=== PATIENT | female | born 1980 ===

== ENCOUNTER 2020-08-31 08:27 | Outpatient (REF) | payer OTHER, SELFPAY ==
[2020-09-03 12:36] LABS: HPV mRNA E6/E7 rflx Not Detected (Not Detected)
== END 2020-08-31 08:28 | disposition home or self-care (01) ==
LOC: HO.LAB 08:27
PROVIDERS: PCP Internal Medicine; Visit Provider Obstetrics & Gynecology
DX: Z01.419 Encounter for gynecological examination (general) (routine) without abnormal findings (principal); Z11.51 Encounter for screening for human papillomavirus (HPV)
CPT/HCPCS: 87624; 88142

== ENCOUNTER 2021-01-07 07:53 | Outpatient (REF) | payer OTHER, SELFPAY ==
--- NOTE | ~2021-01-07 | XR_ITS ---
EXAMINATION: XR RIGHT HIP CLINICAL INFORMATION: Pain. COMPARISON: None. TECHNIQUE: 2 views of the right hip. FINDINGS: Bone alignment is normal. No fracture or dislocation is seen. The joint space is normal. Soft tissues are normal. XR/XR hip RT min 2V IMPRESSION: Unremarkable exam. EXAMINATION: XR LUMBAR SPINE CLINICAL INFORMATION: Pain. COMPARISON: None. TECHNIQUE: 3 views of the lumbar spine. FINDINGS: There is curvature of the proximal lumbar spine to the right and lower lumbar spine to the left. Bone alignment is otherwise normal. Disc spaces are normal. There is lower lumbar spine facet arthritis. IMPRESSION: Slowly mild scoliosis and lower lumbar spine facet arthritis.
--- NOTE | ~2021-01-07 | XR_ITS ---
EXAMINATION: XR RIGHT HIP CLINICAL INFORMATION: Pain. COMPARISON: None. TECHNIQUE: 2 views of the right hip. FINDINGS: Bone alignment is normal. No fracture or dislocation is seen. The joint space is normal. Soft tissues are normal. XR/XR lumbar spine 2-3V IMPRESSION: Unremarkable exam. EXAMINATION: XR LUMBAR SPINE CLINICAL INFORMATION: Pain. COMPARISON: None. TECHNIQUE: 3 views of the lumbar spine. FINDINGS: There is curvature of the proximal lumbar spine to the right and lower lumbar spine to the left. Bone alignment is otherwise normal. Disc spaces are normal. There is lower lumbar spine facet arthritis. IMPRESSION: Slowly mild scoliosis and lower lumbar spine facet arthritis.
[2021-01-07 08:53] LABS: MANUAL DIFF FLAG NO
[2021-01-07 08:58] LABS: Basophils Percent Auto 0.2 % (0-2); Eosinophils Absolute Auto 0.1 X10*3/uL (0.0-0.4); Eosinophils Percent Auto 2.5 % (0-4); Hematocrit 40.9 % (37-47); Hemoglobin 13.2 g/dl (12.0-16.0); Imm Gran Abs Auto 0.01 X10*3/uL (0.00-0.03); Imm Gran Pct Auto 0.2 % (0.0-0.4); Lymphocytes Absolute Auto 1.3 X10*3/uL (1.2-4.9); Lymphocytes Percent Auto 30.2 % (20-40); Mean Corpuscular HGB Conc 32.3 g/dl (31.0-35.0); Mean Corpuscular Hemoglobin 30.8 pg (27.0-33.0); Mean Corpuscular Volume 95.6 fL (80-98); Mean Platelet Volume 10.3 fL (9.4-12.3); Monocytes Absolute Auto 0.4 X10*3/uL (0.1-1.2); Monocytes Percent Auto 9.8 % (2-11); Neutrophils Absolute Auto 2.5 X10*3/uL (2.0-8.3); Neutrophils Percent Auto 57.1 % (45-73); Platelet Count 248 X10*3/uL (160-400); Red Blood Count 4.28 X10*6/uL (4.20-5.50); Red Cell Distribution Width 11.9 % (11.0-16.0); White Blood Count 4.4 X10*3/uL (4.8-10.8)
[2021-01-07 09:04] LABS: Appearance Urine HAZY; Color Urine YELLOW; Glucose Urine UA NEG (NEG); Leukocyte Esterase Urine NEG (NEG); Nitrite Urine NEG (NEG); Specific Gravity - Urine 1.025 (1.005-1.025); Urine Blood NEG (NEG); Urine Ketones NEG (NEG); Urine Protein NEG (NEG-TRACE)
[2021-01-07 09:19] LABS: RBC Urine 0 /HPF (0); Squamous Epithelial Cell Urine 2+ /LPF; WBC Urine 0 /HPF (0-4)
[2021-01-07 09:20] LABS: Bacteria Urine TRACE /LPF; Mucus Urine 2+ /LPF
[2021-01-07 09:21] LABS: Alanine Aminotransferase 12 U/L (0-31); Albumin Level 4.3 g/dL (3.5-5.0); Alkaline Phosphatase 60 U/L (39-117); Anion Gap 13 (12-20); Aspartate Amino Transferase 15 U/L (5-31); Bilirubin Total 0.8 mg/dL (0.0-1.0); Blood Urea Nitrogen 12 mg/dL (9-16); Calcium 8.9 mg/dL (8.4-10.2); Carbon Dioxide 25 mmol/L (22-29); Chloride 106 mmol/L (96-108); Cholesterol 204 mg/dL; Estimated Glomerular Filt Rate > 60; Glucose Random 85 mg/dL (60-115); HDL Cholesterol 58 mg/dL; LDL Cholesterol Calculated 136 mg/dl; Potassium 4.6 mmol/L (3.3-5.1); Sodium 139 mmol/L (135-145); Triglycerides 51 mg/dL
[2021-01-07 09:45] LABS: Free T4 (Free Thyroxine) 1.01 ng/dL (0.71-1.85); Vitamin D 25-OH Total 20.1 ng/mL (>30)
[2021-01-07 10:05] LABS: Vitamin B12 283 pg/mL (200-900)
== END 2021-01-07 07:54 | disposition home or self-care (01) ==
LOC: HO.XRAY 07:53
PROVIDERS: PCP Internal Medicine; Visit Provider Internal Medicine
DX: M25.551 Pain in right hip (principal); M54.9 Dorsalgia, unspecified; R42 Dizziness and giddiness; E78.00 Pure hypercholesterolemia, unspecified
CPT/HCPCS: 36415; 72100; 73502; 80053; 80061; 81001; 82306; 82607; 82746; 84439; 84443; 85025

== ENCOUNTER 2021-09-05 21:01 | Emergency (ER) | payer OTHER, SELFPAY ==
[2021-09-05 21:18] VITALS: BP 145/70; PULSE 83; RESP 18; TEMP 36.2; O2SAT 97; BMI 32.3
[2021-09-05 23:58] VITALS: BP 116/70; PULSE 86; RESP 14; O2SAT 98
--- NOTE | 2021-09-06 00:12 | ED.LOWEXIN ---
HPI - Extremity Injury (Lower) General Chief Complaint: Extremity Injury, Lower Stated Complaint: R leg pain Time Seen by Provider: 09/05/21 21:34 Source: patient Mode of arrival: ambulatory Limitations: no limitations History of Present Illness HPI Narrative: Patient playing volleyball all of a sudden heard a pop when she jumped in the back of the right calf area since then pain full to ambulate slight swelling no other injury Related Data Previous Rx's Medication Instructions Recorded cyclobenzaprine 10 mg tablet 10 mg PO BID PRN #20 tab 07/12/21 ibuprofen 600 mg tablet 600 mg PO Q6H PRN #30 tab 09/06/21 Allergies Allergy/AdvReac Type Severity Reaction Status Date / Time pseudoephedrine [Sudafed] Allergy Unknown unk Verified 12/28/20 09:08 Review of Systems Review of Systems: Yes all other systems are reviewed and are negative [facility] Past Medical History Medical History Constipation Left ovarian cyst Obesity (BMI 30-39.9) Vitamin D deficiency Social History Social History Housing: Apartment Alcohol intake: never Patient Tobacco Use Status: Never used Tobacco Advance Directives: No service: No Current occupational status: employed Physical Exam Vital Signs: Vital Signs: Last Vital Signs Temp 97.2 F 09/05/21 21:18 Pulse 86 09/05/21 23:58 Resp 14 09/05/21 23:58 BP 116/70 09/05/21 23:58 Pulse Ox 98 09/05/21 23:58 BMI result Body Mass Index 32.3 Extrem: Upper/lower leg/hip images: 1. Diffuse tenderness muscle flap no ecchymosis or tightness upper calf area able to plantar flex and dorsiflex without significant deficit MDM - Extremity Injury (Lower) MDM Narrative Medical decision making narrative: Bedside ultrasound was done on the R calf no gap was notice no fluid collection noticed David wrap was applied patient will use crutches and ibuprofen for pain Discharge Plan Discharge Clinical Impression: Strain of right calf muscle Patient Disposition: Home, Self-Care Instructions: Muscle Strain (ED) Additional Instructions: Wear the David wrap for support Use crutches for ambulation Ibuprofen for pain Report to the ER if increased swelling increased pain you should get better in next 7-10 days Prescriptions: New ibuprofen 600 mg tablet 600 mg PO Q6H PRN (Reason: pain) Qty: 30 0RF No Action cyclobenzaprine 10 mg tablet 10 mg PO BID PRN (Reason: muscle spasm) Qty: 20 0RF Interventions: LWBS Worksheet Last Done: 09/05/21 21:02 ED Discharge Assessment Last Done: 09/06/21 00:42 Discharge Date/Time: 09/06/21 00:42
[2021-09-06] MEDS: Ibuprofen 600 MG TABLET PO (00:39)
== END 2021-09-06 00:42 | disposition home or self-care (01) ==
LOC: HO.ED 09-06 00:26
PROVIDERS: Emergency Provider Internal Medicine; PCP Internal Medicine
DX: S86.911A Strain of unspecified muscle(s) and tendon(s) at lower leg level, right leg, initial encounter (principal); X58.XXXA Exposure to other specified factors, initial encounter; Y93.9 Activity, unspecified; Y92.9 Unspecified place or not applicable; Y99.9 Unspecified external cause status; Z79.899 Other long term (current) drug therapy
CPT/HCPCS: 99282; 99283

== ENCOUNTER 2022-02-01 10:32 | Outpatient (REF) | payer OTHER, SELFPAY ==
--- NOTE | ~2022-02-01 | MM_ITS ---
EXAMINATION: MM SCREENING DIGITAL BREAST TOMOSYNTHESIS, BILATERAL CLINICAL INFORMATION: Screening. Asymptomatic. The lifetime risk of breast cancer based on the Tyrer-Cuzick Model is 10.2%. COMPARISON: Mammography: None. TECHNIQUE: Digital breast tomosynthesis is performed in both the craniocaudal and mediolateral oblique views along with computer-aided detection (CAD). Synthesized 2D images are generated from the tomosynthesis. FINDINGS: The breasts are extremely dense, which lowers the sensitivity of mammography (ACR BI-RADS breast composition Category d). No suspicious right breast findings are identified. Within the inferior aspect of the left breast approximately 7 cm from the nipple there is an oval circumscribed density measuring approximately 2.8 x 2.0 cm in size. Targeted left breast ultrasound is recommended. MM/MM tomosynthesis screening BI IMPRESSION: Left breast density for further evaluation with ultrasound. ASSESSMENT: BI-RADS 0: Incomplete - Need Additional Imaging Evaluation RECOMMENDATION: Targeted left breast ultrasound.
== END 2022-02-01 10:33 | disposition home or self-care (01) ==
LOC: HO.MAMMO 10:32
PROVIDERS: PCP Internal Medicine; Visit Provider Internal Medicine
DX: Z12.31 Encounter for screening mammogram for malignant neoplasm of breast (principal)
CPT/HCPCS: 77063; 77067

== ENCOUNTER 2022-02-06 12:44 | Outpatient (REF) | payer OTHER, SELFPAY ==
--- NOTE | ~2022-02-06 | US_ITS ---
EXAMINATION: US DIAGNOSTIC ULTRASOUND BREAST, LEFT CLINICAL INFORMATION: Density on mammography inferior left breast. COMPARISON: 02/01/2022 TECHNIQUE: Ultrasound of the breast is performed with real-time mattson scale imaging and color Doppler. FINDINGS: At the 5 o'clock position approximately 7 cm from the nipple there is a heterogeneous hypoechoic well-circumscribed slightly lobular lesion measuring 2.5 x 2.1 x 0.9 cm in size. The lesion is wider than it is tall. There is some internal vascularity present. There is some mild distal sound enhancement. This may be related to fibroadenoma but is indeterminate. Ultrasound-guided core biopsy is recommended. Results are discussed with the patient at time of visit. US/US breast LT limited IMPRESSION: Solid lesion left breast 5 o'clock position for which ultrasound-guided core biopsy is recommended. ASSESSMENT: BI-RADS 4: Suspicious (subcategory 4A: Low suspicion for malignancy) RECOMMENDATION: Ultrasound-guided core biopsy left breast. Breast center product director called referring provider's office. Message to Tamela. This patient's information was entered into a reminder system with a target due date for their next mammogram.
== END 2022-02-06 12:45 | disposition home or self-care (01) ==
LOC: HO.MAMMO 12:44
PROVIDERS: PCP Internal Medicine; Visit Provider Internal Medicine
DX: R92.2 Inconclusive mammogram (principal)
CPT/HCPCS: 76642

== ENCOUNTER 2022-02-10 08:50 | Outpatient (REF) | payer OTHER, SELFPAY ==
--- NOTE | ~2022-02-10 | MM_ITS ---
PROCEDURE: US GUIDED BREAST BIOPSY, LEFT CLINICAL INFORMATION: Indeterminate mass COMPARISON: February 06, 2019 and February 02, 2020 PROCEDURAL DETAILS: The details of the procedure, as well as the risks, benefits, and alternatives to the procedure were explained to the patient in detail and all of her questions were answered, after which written informed consent was obtained. Site and side were confirmed. Prior to the procedure, sonography revealed an oval heterogeneous echotexture mass 5:00 position 7 cm from the nipple of the left breast.. A time-out was performed, the lesion intended for biopsy was targeted, and the skin of the left breast was then prepped and draped in the usual sterile fashion. Using sonographic guidance, sterile technique, and 1% lidocaine without epinephrine for local anesthesia, multiple automated core biopsies were obtained through the targeted area with a 14G spring loaded Achieve core biopsy device. There was real-time confirmation of appropriate needle passage. Sampling was documented. At the completion of tissue sampling, a single coil-shaped metallic clip was deposited at the biopsy site. There was no evidence of immediate complication. SPECIMEN: An appropriate sample was obtained. DIGITAL POST-PROCEDURE MAMMOGRAPHY: Breast density: The tissue is heterogeneously dense which may obscure small masses. BI-RADS version 5, category C. There are no new mammographic findings demonstrated. The postprocedure 2-view direct digital mammogram reveals satisfactory positioning of the biopsy clip. The patient tolerated the procedure well and, after assuring adequate hemostasis, was discharged in good condition after reviewing postbiopsy breast care instructions. Final pathology results are pending. MM/MM tomosynthesis diagnostic LT IMPRESSION: 1. No immediate complication from ultrasound-guided percutaneous biopsy left breast. 2. Ultrasound was used to localize and guide marker clip placement. 3. The 2-view direct digital postprocedure mammogram reveals satisfactory positioning of the biopsy clip. 4. Final pathology results are pending. A separate report with final recommendations will be issued once these results are made available.
[2022-02-10] MEDS: Lidocaine HCl 1 % 20 ML VIAL 9 ML SUBCUT (10:59)
== END 2022-02-10 08:51 | disposition home or self-care (01) ==
LOC: HO.MAMMO 08:50
PROVIDERS: PCP Internal Medicine; Visit Provider Surgery
DX: R92.8 Other abnormal and inconclusive findings on diagnostic imaging of breast (principal)
CPT/HCPCS: 19083; 77061; 77065; 88305

== ENCOUNTER 2023-01-05 08:49 | Outpatient (AMB) | payer OTHER, SELFPAY ==
[2023-01-05 09:04] VITALS: BP 114/76; PULSE 70; O2SAT 98; BMI 32.4
--- NOTE | 2023-01-05 09:04 | A.OFFPC_ITS ---
Vital Signs 01/05/23 09:04 Height 5 ft 6 in Weight 201 lb BMI 32.4 BP 114/76 Blood Pressure Location Lt brachial Position Sitting Pulse 70 Pulse Source Pulse Oximeter Pulse Oximetry (%) 98 Oxygen Delivery Method Room Air Intake Visit Reasons: Annual Exam Allergies pseudoephedrine [Sudafed] Allergy (Unknown, Verified 01/05/23 09:05) unk Medication List - Last Reconciled 01/05/23 by Leilani Saavedra MD cyclobenzaprine 10 mg PO BID PRN multivitamin 1 tab PO DAILY Tobacco use date assessed: 01/05/23 Dental Screening Dental Screen Date: 01/05/23 Did you have a dental visit in the last 12 months?: No Did you have a dental problem in the last 6 months where you did not have access to dental care?: No Was dental information given to patient?: No HPI Annual Exam HPI Details 42-year-old obese female with hyperchole sterolemia constipation plantar fasciitis last seen in December 2021. Patient is here for physical exam. Mammogram is due next month. 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 [facility] Medical History Constipation Left ovarian cyst Obesity (BMI 30-39.9) Vitamin D deficiency Family History (Updated 01/05/23 @ 09:06 by Saige Bojorquez CMA) Mother Arthritis Father Hypertension Social History Housing: Apartment Alcohol intake: never Patient Tobacco Use Status: Never used Tobacco e-Cigarette/Vaping Use: Never Used Second Hand Smoke Exposure: No service: No Current occupational status: employed Cognitive needs: No Hearing needs: No Vision needs: Yes Female Reproductive History Menstrual Age of Menarche: 9 Questionnaire PHQ-9 Over the last 2 weeks, how often have you been bothered by any of the following problems? 1. Little interest or pleasure in doing things: not at all 2. Feeling down, depressed, or hopeless: not at all 3. Trouble falling or staying asleep, or sleeping too much: not at all 4. Feeling tired or having little energy: not at all 5. Poor appetite or overeating: not at all 6. Feeling bad about yourself - or that you are a failure or have let yourself or your family down: not at all 7. Trouble concentrating on things, such as reading the newspaper or watching television: not at all 8. Moving or speaking so slowly that other people could have noticed. Or the opposite - being so fidgety or restless that you have been moving around a lot more than usual: not at all 9. Thoughts that you would be better off or of hurting yourself in some way: not at all Total score: 0 Depression Screening Interpretation: Negative Source: Developed by Drs. Mark Sosa, Brianna Nur, Adama Corbett and colleagues, with an educational bouchra from [employer]. Thrive Questionnaire Date Thrive assessed: 01/05/23 I am a: Patient What is your living situation today?: I have a steady place to live Within the past 12 months, did the food you bought not last and you didn't have the money to get more?: Never true Within the past 12 months, did you worry whether your food would run out before you got money to buy more?: Never true Do you have trouble paying for medicines?: No Do you have trouble getting transportation to medical appointments?: No Do you have trouble paying your heating and electricity bill?: No Do you have trouble taking care of your child, family member or friend?: No Do you have trouble with day-to-day activities such as bathing, preparing meals, shopping, managing finances, etc.?: No Are you currently unemployed and looking for a job?: No Are you interested in more education?: No Currently or been in a relationship where the following occur: no concerns reported AUDIT C Alcohol Use Questionnaire (AUDIT-C) 1. How often do you have a drink containing alcohol?: Never 2. How many drinks containing alcohol do you have on a typical day when you are drinking?: 1 or 2 3. How often do you have six or more drinks on one occasion?: Never Total Score: 0 ANAMIKA-7 AMB Questionnaire ANAMIKA-7 Date ANAMIKA - 7 assessed: 01/05/23 Feeling nervous, anxious, or on edge: 1 = Several days Not being able to stop or control worryin = Not at all Worrying too much about different things: 0 = Not at all Trouble relaxin = Not at all Being so restless that it is hard to sit still: 0 = Not at all Becoming easily annoyed or irritable: 0 = Not at all Feeling afraid as if something awful might happen: 0 = Not at all Total ANAMIKA-7 score (0-4 normal; 5-9 mild; 10-14 moderate; 15-21 severe): 1 Source: Developed by Drs. Mark Sosa, Brianna Nur, Adama Corbett and colleagues, with an educational bouchra from [employer]. Review of Systems Const Denies poor appetite and Denies weakness Eyes Denies no additional complaints ENT Reports Normal hearing present, Denies dizziness, Denies nasal congestion, Denies tinnitus and Denies sore throat Card Denies chest pain, Denies syncope, Denies rapid heart rate and Denies dyspnea Resp Denies cough and Denies dyspnea GI Denies change in stool character, Reports constipation, Denies diarrhea, Denies nausea and Denies vomiting Denies urinary frequency, Denies difficulty voiding and Denies dysuria Neuro Reports Normal hearing present, Denies confusion, Denies dizziness, Denies syncope and Denies weakness Psych Denies confusion Physical exam (Primary Care) Vital Signs: Last Vital Signs Pulse 70 01/05/23 09:04 BP 114/76 01/05/23 09:04 Pulse Ox 98 01/05/23 09:04 Oxygen Delivery Method Room Air 01/05/23 09:04 BMI result Body Mass Index 32.4 Tobacco/Smoking Status: Tobacco use Status Tobacco use date assessed 01/05/23 01/05/23 09:07 Patient Tobacco Use Status Never used Tobacco 01/05/23 09:07 Tobacco use type 02/06/22 13:44 e-Cigarette/Vaping Use Never Used 01/05/23 09:07 PHQ-9: PHQ-9 Score PHQ-9: Total score 0 01/05/23 09:07 Depression Screening Interpretation: Negative Thrive Assessment: Date of Thrive Assessment Date Thrive assessed 01/05/23 01/05/23 09:07 Currently or been in a relationship where the following occur: no concerns reported Const General: alert and awake; No confusion Orientation/consciousness: No confusion HENMT Head: Yes normocephalic Ears: external ears normal and TM's normal bilaterally Face and sinus: Yes normal facial exam Mouth: moist mucous membranes Throat: Yes tonsils normal Eyes Conjunctivae: conjunctivae normal Pupils: Equal, round and reactive pupils present and Pupil accommodation reflex normal Direct Ophthalmoscopy: normal light reflex Neck Neck: No lymphadenopathy Thyroid: Thyroid normal Chest Chest palpation & inspection: normal inspection of the chest Resp Effort & Inspection: normal respiratory effort and no audible wheezes Auscultation: clear to auscultation bilaterally, no crackles, no wheezes and lung sounds not diminished Cardio Rate: regular rate Rhythm: regular rhythm Peripheral pulses: radial pulses present and dorsalis pedis present GI Palpation (GI): no masses Auscultation: normal bowel sounds and normoactive bowel sounds Rectal Exam - Female: deferred Skin General skin exam: no rashes or lesions noted Rashes: no rashes Neuro General: deep tendon reflexes 2+ bilaterally and No confusion Cranial nerves: Yes Equal, round and reactive pupils present, Yes Midline tongue present, Yes Normal hearing present and Yes Ability to bilaterally elevate shoulders present Cognition (Neuro): normal cognition Gait exam (Neuro): Normal gait present Motor exam (neuro): 5/5 motor strength present throughout Deep tendon reflexes (DTR's): Right brachioradialis reflex intensity grade: 2+, Left brachioradialis reflex intensity grade: 2+, Right patellar reflex intensity grade: 2+ and Left patellar reflex intensity grade: 2+ Extrem General: No edema Assessment and Plan Assessment & Plan (1) Annual physical exam: Code(s): Z00.00 - Encounter for general adult medical examination without abnormal findings (2) Obesity (BMI 30-39.9): Code(s): E66.9 - Obesity, unspecified Plan: Diet and exercise (3) Breast cancer screening by mammogram: Code(s): Z12.31 - Encounter for screening mammogram for malignant neoplasm of breast Plan: Patient's reminded about mammogram January 2022 (4) Hypercholesterolemia: Code(s): E78.00 - Pure hypercholesterolemia, unspecified Plan: Avoid fried foods, chicken skin, eggs, butter margarine, pastries and meat. Be it pork or beef they have a lot of cholesterol LDL goal of less than 130 and triglyceride of less than 1 (5) Vitamin B12 deficiency: Code(s): E53.8 - Deficiency of other specified B group vitamins Plan: Vitamin B12 1000 mcg once a day (6) Vitamin D deficiency: Code(s): E55.9 - Vitamin D deficiency, unspecified Plan: Vitamin-D 3463-9980 units once a day (7) Varicose veins of both lower extremities: Code(s): I83.93 - Asymptomatic varicose veins of bilateral lower extremities Plan: When sitting down elevate the legs, exercise, and support stockings Orders: Orders Complete Blood Count Auto Diff Today E78.00 - Pure hypercholesterolemia, unspecified Comprehensive Met. Panel Today E78.00 - Pure hypercholesterolemia, unspecified Vitamin B12 and Folate Today E78.00 - Pure hypercholesterolemia, unspecified Vitamin D 25-OH Total Today E78.00 - Pure hypercholesterolemia, unspecified Free T4 (Free Thyroxine) Today E78.00 - Pure hypercholesterolemia, unspecified Thyroid Stimulating Hormone Today E78.00 - Pure hypercholesterolemia, unspecified Lipid Panel Today E78.00 - Pure hypercholesterolemia, unspecified Coding Level of Care Code Est Pt Prev Care 40-64y(34721) Diagnoses Annual physical exam Z00.00 Obesity (BMI 30-39.9) E66.9 Breast cancer screening by mammogram Z12.31 Hypercholesterolemia E78.00 Vitamin B12 deficiency E53.8 Vitamin D deficiency E55.9 Varicose veins of both lower extremities I83.93
== END 2023-01-05 09:52 | disposition home or self-care (01) ==
PROVIDERS: PCP Internal Medicine; Visit Provider Internal Medicine
DX: Z00.00 Encounter for general adult medical examination without abnormal findings (principal); E55.9 Vitamin D deficiency, unspecified; E66.9 Obesity, unspecified; Z68.32 Body mass index [BMI] 32.0-32.9, adult; Z12.31 Encounter for screening mammogram for malignant neoplasm of breast; E78.00 Pure hypercholesterolemia, unspecified; E53.8 Deficiency of other specified B group vitamins; I83.93 Asymptomatic varicose veins of bilateral lower extremities
CPT/HCPCS: 99396

== ENCOUNTER 2023-01-05 09:57 | Outpatient (REF) | payer OTHER, SELFPAY ==
[2023-01-05 10:35] LABS: MANUAL DIFF FLAG NO
[2023-01-05 10:39] LABS: Basophils Percent Auto 0.4 % (0-2); Eosinophils Percent Auto 0.8 % (0-4); Hematocrit 41.9 % (37.0-47.0); Hemoglobin 13.7 g/dl (12.0-16.0); Imm Gran Abs Auto 0.01 X10*3/uL (0.00-0.03); Imm Gran Pct Auto 0.2 % (0.0-0.4); Lymphocytes Absolute Auto 1.6 X10*3/uL (1.2-4.9); Lymphocytes Percent Auto 29.4 % (20-40); Mean Corpuscular HGB Conc 32.7 g/dl (31.0-35.0); Mean Corpuscular Volume 94.8 fL (80.0-98.0); Mean Platelet Volume 10.2 fL (9.4-12.3); Monocytes Absolute Auto 0.4 X10*3/uL (0.1-1.2); Monocytes Percent Auto 7.7 % (2-11); Neutrophils Absolute Auto 3.3 x10*3/uL (2.0-8.3); Neutrophils Percent Auto 61.5 % (45-73); Platelet Count 224 X10*3/uL (160-400); Red Blood Count 4.42 X10*6/uL (4.20-5.50); Red Cell Distribution Width 12.3 % (11.0-16.0); White Blood Count 5.3 X10*3/uL (4.8-10.8)
[2023-01-05 12:47] LABS: Folate 15.6 ng/mL (> or = 4.0); Vitamin B12 447 pg/mL (200-900)
[2023-01-05 13:06] LABS: Alanine Aminotransferase 10 U/L (0-31); Albumin Level 4.2 g/dL (3.5-5.0); Alkaline Phosphatase 50 U/L (39-117); Anion Gap 11 (12-20); Aspartate Amino Transferase 14 U/L (5-31); Bilirubin Total 0.6 mg/dL (0.0-1.0); Blood Urea Nitrogen 10 mg/dL (9-16); Calcium 8.9 mg/dL (8.4-10.2); Carbon Dioxide 24 mmol/L (22-29); Chloride 107 mmol/L (96-108); Cholesterol 179 mg/dL (<200); Estimated Glomerular Filt Rate > 60; Glucose Random 80 mg/dL (60-115); HDL Cholesterol 52 mg/dL (>40); LDL Cholesterol Calculated 114 mg/dL (<100); Potassium 4.2 mmol/L (3.3-5.1); Sodium 138 mmol/L (135-145); Total Protein 7.3 g/dL (6.5-8.0); Triglycerides 65 mg/dL (<150)
[2023-01-05 13:15] LABS: Free T4 (Free Thyroxine) 0.97 ng/dL (0.71-1.85); Thyroid Stimulating Hormone 0.63 uIU/mL (0.32-4.0); Vitamin D 25-OH Total 34.4 ng/mL (>30)
== END 2023-01-05 09:58 | disposition home or self-care (01) ==
LOC: HO.LAB 09:57
PROVIDERS: PCP Internal Medicine; Visit Provider Internal Medicine
DX: E78.00 Pure hypercholesterolemia, unspecified (principal); E55.9 Vitamin D deficiency, unspecified
CPT/HCPCS: 36415; 80053; 80061; 82306; 82607; 82746; 84439; 84443; 85025

== ENCOUNTER 2023-01-13 07:52 | Outpatient (REF) | payer OTHER, SELFPAY ==
[2023-01-13 08:25] LABS: Appearance Urine Cloudy; Color Urine Yellow; Glucose Urine UA Negative (Negative); Leukocyte Esterase Urine Large (3+) (Negative); Nitrite Urine Negative (Negative); PH 6.5 (5.0-9.0); Specific Gravity - Urine 1.015 (1.005-1.025); UMIC TRIGGER UACC YES; Urine Blood Large (3+) (Negative); Urine Ketones Negative (Negative); Urine Protein 30 (1+) mg/dL (Neg-Trace)
[2023-01-13 08:31] LABS: Bacteria Urine 3+ (None Seen); Hyaline Casts Urine 0-2 /LPF (0-2); RBC Urine >20 /HPF (0-2); Squamous Epithelial Cell Urine 0-2 /HPF (0-2); UACC Culture Trigger YES; WBC Urine >50 /HPF (0-5)
== END 2023-01-13 07:53 | disposition home or self-care (01) ==
LOC: HO.LAB 07:52
PROVIDERS: PCP Internal Medicine; Visit Provider Internal Medicine
DX: R30.0 Dysuria (principal)
CPT/HCPCS: 81001; 87086; 87088; 87186

== ENCOUNTER 2023-02-07 10:04 | Outpatient (REF) | payer OTHER, SELFPAY ==
--- NOTE | ~2023-02-07 | MM_ITS ---
EXAMINATION: MM SCREENING DIGITAL BREAST TOMOSYNTHESIS, BILATERAL CLINICAL INFORMATION: Screening. Asymptomatic. COMPARISON: Mammography: This study is compared with prior exams dating back to 2021. TECHNIQUE: Digital breast tomosynthesis is performed in both the craniocaudal and mediolateral oblique views along with computer-aided detection (CAD). Synthesized 2D images are generated from the tomosynthesis. FINDINGS: The breasts are heterogeneously dense, which may obscure small masses (ACR BI-RADS breast composition Category c). There are no significant masses, abnormal calcifications, or other abnormalities. There is a biopsy tissue marker in an oval, well-circumscribed, benign focal asymmetry of the lower outer quadrant of the left breast. MM/MM tomosynthesis screening BI IMPRESSION: No mammographic evidence of malignancy. ASSESSMENT: BI-RADS BI-RADS 2 - Benign Findings RECOMMENDATION: Routine annual mammography screening. 1 year F/U This examination should not preclude the clinical evaluation of a suspicious palpable abnormality. This patient's information was entered into a reminder system with a target due date for their next mammogram.
== END 2023-02-07 10:05 | disposition home or self-care (01) ==
LOC: HO.MAMMO 10:04
PROVIDERS: PCP Internal Medicine; Visit Provider Internal Medicine
DX: Z12.31 Encounter for screening mammogram for malignant neoplasm of breast (principal)
CPT/HCPCS: 77063; 77067

== ENCOUNTER → 2023-02-07 10:15 | Outpatient (BNV) | payer OTHER, SELFPAY | PROVIDERS: PCP Internal Medicine; Visit Provider Radiology Diagnostic Radiology | DX: Z12.31 Encounter for screening mammogram for malignant neoplasm of breast (principal) | CPT/HCPCS: 77063; 77067 ==

== ENCOUNTER 2023-04-03 08:53 | Outpatient (AMB) | payer OTHER, SELFPAY ==
--- NOTE | 2023-04-03 09:03 | MHC.OFFVIS ---
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 No complaints. Last Pap/HPV was negative in 09/03 Last Mammogram was BI-RADS 2 in 02/05 [facility] Medical History Constipation Left ovarian cyst Obesity (BMI 30-39.9) Vitamin D deficiency Family History Mother Arthritis Father Hypertension Social History Housing: Apartment Alcohol intake: never Patient Tobacco Use Status: Never used Tobacco e-Cigarette/Vaping Use: Never Used Second Hand Smoke Exposure: No service: No Current occupational status: employed Cognitive needs: No Hearing needs: No Vision needs: Yes Female Reproductive History Menstrual Age of Menarche: 9 Duration of menses: 3-5 days Date of last menstrual period: 03/10/23 control method: none Total pregnancies: 2 Full term: 2 Number of Living Children: 2 Date of last pap smear: 09/01/20 (negative) Date of Mammogram: 02/07/23 Review of Systems Const All systems reviewed & are unremarkable except as noted in HPI and below Card Reports as per HPI Resp Reports as per HPI GI Reports as per HPI and Reports no additional complaints Reports as per HPI Physical Exam Vital Signs: Last Vital Signs BP 114/66 04/03/23 09:04 BMI result Body Mass Index 32.3 Const General: cooperative, healthy appearing and comfortable Chest Chest palpation & inspection: normal inspection of the chest and normal palpation of entire chest wall Breast/axilla inspection: normal inspection of the breasts and normal inspection of the axillae Breast/axilla palpation: normal palpation of the breasts, normal palpation of the axillae and no axillary lymphadenopathy Resp Effort & Inspection: normal respiratory effort Auscultation: clear to auscultation bilaterally Percussion: percussion normal Cardio Palpation: normal PMI Rate: regular rate Rhythm: regular rhythm Heart sounds: no murmurs and no rubs Peripheral pulses: Peripheral pulses 2+ throughout GI Inspection: Yes normal to inspection Palpation (GI): Soft to palpation, nontender, no guarding, not rigid and No hepatosplenomegaly present Percussion: Yes normal to percussion Auscultation: normal bowel sounds Rectal Exam - Female: deferred General: Yes bladder normal to palpation External Female Exam: No lesion Speculum Exam - Vagina: normal appearance of the vagina, normal palpation, normal vaginal discharge and not erythematous Speculum Exam - Cervix: normal appearance of the cervix and normal palpation Bimanual exam- vagina & uterus: normal bimanual exam, normal palpation, uterine size normal, bladder normal to palpation, consistency normal and normal palpation Bimanual Exam- Adnexa, other: normal adnexae, no masses and no tenderness Assessment & Plan Assessment & Plan (1) Well woman exam: Code(s): Z01.419 - Encounter for gynecological examination (general) (routine) without abnormal findings Plan: Cotesting not indicated this year. Instructions given the patient to schedule next screening Mammogram in 02/06. Counseled the patient about the recommended dietary allowance of 1000 mg of Calcium & 600 IU of vitamin D. The patient was instructed to perform monthly self-breast exams and to schedule an annual exam in a year; All questions answered and the patient verbalized understanding. Instructed the patient to schedule annual exam in a year Coding Level of Care Code Est Pt Prev Care 40-64y(24229) Diagnoses Well woman exam Z01.419
[2023-04-03 09:04] VITALS: BP 114/66; BMI 32.3
== END 2023-04-03 09:50 | disposition home or self-care (01) ==
PROVIDERS: Visit Provider Obstetrics & Gynecology
DX: Z01.419 Encounter for gynecological examination (general) (routine) without abnormal findings (principal)
CPT/HCPCS: 99396

== ENCOUNTER → 2023-04-03 08:53 | Outpatient (BNVA) | payer OTHER, SELFPAY | PROVIDERS: Visit Provider Obstetrics & Gynecology ==

== ENCOUNTER 2023-05-02 08:53 | Outpatient (REF) | payer OTHER, SELFPAY ==
--- NOTE | ~2023-05-02 | XR_ITS ---
EXAMINATION: XR RIBS, LEFT WITH PA CHEST CLINICAL INFORMATION: Left upper chest pain status-post injury. COMPARISON: None available. TECHNIQUE: 3 views of the left ribs were obtained, together with a PA view of the chest. FINDINGS: Lungs are clear. No consolidation, pneumothorax, or pleural effusion. The cardiomediastinal silhouette and pulmonary vasculature are normal. Osseous structures are unremarkable. Ribs are intact. No fractures are identified. There is a mild thoracic levoscoliosis. There is multi-level thoracolumbar spondylosis. XR/XR ribs LT min 3V w CXR1V IMPRESSION: Unremarkable examination of the left ribs and chest.
== END 2023-05-02 08:54 | disposition home or self-care (01) ==
LOC: HO.XRAY 08:53
PROVIDERS: PCP Internal Medicine; Visit Provider Internal Medicine
DX: R07.9 Chest pain, unspecified (principal)
CPT/HCPCS: 71101

== ENCOUNTER 2024-01-10 08:52 | Outpatient (AMB) | payer BC, SELFPAY ==
--- NOTE | 2024-01-10 08:53 | MHC.PC.OV ---
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: No Accompanied by: Self / Same As Patient Allergies pseudoephedrine [Sudafed] Allergy (Unknown, Verified 01/10/24 08:57) unk Medication List - Last Reconciled 01/10/24 by Leilani Saavedra MD cyclobenzaprine 10 mg PO BID PRN ibuprofen 600 mg PO Q8H PRN multivitamin 1 tab PO DAILY omega 9-kut-xik-fish oil 60-90-500 mg (Fish Oil) 1 cap PO DAILY Tobacco use date assessed: 01/10/24 Dental Screening Dental Screen Date: 01/10/24 Did you have a dental visit in the last 12 months?: Yes Did you have a dental problem in the last 6 months where you did not have access to dental care?: No Was dental information given to patient?: Patient has dentist HPI PE HPI Details 43-year-old obese female with hypercholesterolemia vitamin B12 deficiency vitamin-D deficiency and peripheral vascular disease coming in for physical exam last seen in December last year. Patient's mammogram is up-to-date. [facility] Medical History (Updated 04/26/23 @ 17:19 by Leilani Saavedra MD) Constipation Left ovarian cyst Obesity (BMI 30-39.9) Vitamin D deficiency Surgical History (Updated 01/10/24 @ 08:58 by ALVINA Mathews) No pertinent past surgical history Family History Mother Arthritis Father Hypertension Social History Housing: Apartment Alcohol intake: never Patient Tobacco Use Status: Never used Tobacco e-Cigarette/Vaping Use: Never Used Second Hand Smoke Exposure: No service: No Current occupational status: employed Current occupational exposures/hazards: No Cognitive needs: No Hearing needs: No Vision needs: Yes Female Reproductive History Menstrual Age of Menarche: 9 Questionnaire PHQ-9 Over the last 2 weeks, how often have you been bothered by any of the following problems? 1. Little interest or pleasure in doing things: not at all 2. Feeling down, depressed, or hopeless: not at all 3. Trouble falling or staying asleep, or sleeping too much: not at all 4. Feeling tired or having little energy: not at all 5. Poor appetite or overeating: not at all 6. Feeling bad about yourself - or that you are a failure or have let yourself or your family down: not at all 7. Trouble concentrating on things, such as reading the newspaper or watching television: not at all 8. Moving or speaking so slowly that other people could have noticed. Or the opposite - being so fidgety or restless that you have been moving around a lot more than usual: not at all 9. Thoughts that you would be better off or of hurting yourself in some way: not at all Total score: 0 Depression Screening Interpretation: Negative Depression Screening Done: Yes Source: Developed by Drs. Mark Sosa, Brianna Nur, Adama Corbett and colleagues, with an educational bouchra from [employer]. Thrive Questionnaire Date Thrive assessed: 01/10/24 I am a: Patient What is your living situation today?: I choose not to answer this question Within the past 12 months, did the food you bought not last and you didn't have the money to get more?: I choose not to answer this question Within the past 12 months, did you worry whether your food would run out before you got money to buy more?: I choose not to answer this question Do you have trouble paying for medicines?: I choose not to answer this question Do you have trouble getting transportation to medical appointments?: I choose not to answer this question Do you have trouble paying your heating and electricity bill?: I choose not to answer this question Do you have trouble taking care of your child, family member or friend?: I choose not to answer this question Do you have trouble with day-to-day activities such as bathing, preparing meals, shopping, managing finances, etc.?: I choose not to answer this question Are you currently unemployed and looking for a job?: I choose not to answer this question Are you interested in more education?: I choose not to answer this question Please select the resources that you would like help with: None Currently or been in a relationship where the following occur: I choose not to answer THRIVE Score: 0 AUDIT C Alcohol Use Questionnaire (AUDIT-C) 1. How often do you have a drink containing alcohol?: Never Total Score: 0 ANAMIKA-7 AMB Questionnaire ANAMIKA-7 Date ANAMIKA - 7 assessed: 01/10/24 Feeling nervous, anxious, or on edge: 0 = Not at all Not being able to stop or control worryin = Not at all Worrying too much about different things: 0 = Not at all Trouble relaxin = Not at all Being so restless that it is hard to sit still: 0 = Not at all Becoming easily annoyed or irritable: 0 = Not at all Feeling afraid as if something awful might happen: 0 = Not at all Total ANAMIKA-7 score (0-4 normal; 5-9 mild; 10-14 moderate; 15-21 severe): 0 Source: Developed by Drs. Mark Sosa, Brianna Nur, Adama Corbett and colleagues, with an educational bouchra from [employer]. Review of Systems Const Denies poor appetite and Denies weakness Eyes Denies no additional complaints ENT Reports Normal hearing present, Denies dizziness, Denies nasal congestion, Denies tinnitus and Denies sore throat Card Denies chest pain, Denies syncope, Denies rapid heart rate and Denies dyspnea Resp Denies cough and Denies dyspnea GI Denies change in stool character, Reports constipation, Denies diarrhea, Denies nausea and Denies vomiting Denies urinary frequency, Denies difficulty voiding and Denies dysuria Neuro Reports Normal hearing present, Denies confusion, Denies dizziness, Denies syncope and Denies weakness Psych Denies confusion Physical exam (Primary Care) Vital Signs: Last Vital Signs Pulse 91 01/10/24 08:55 BP 110/80 01/10/24 08:55 Pulse Ox 98 01/10/24 08:55 Oxygen Delivery Method Room Air 01/10/24 08:55 BMI result Body Mass Index 33.9 Tobacco/Smoking Status: Tobacco use Status Tobacco use date assessed 01/10/24 01/10/24 09:00 Patient Tobacco Use Status Never used Tobacco 01/10/24 08:55 Tobacco use type 02/06/22 13:44 e-Cigarette/Vaping Use Never Used 09/26/24 08:55 PHQ-9: PHQ-9 Score PHQ-9: Total score 0 01/10/24 09:33 Depression Screening Interpretation: Negative Thrive Assessment: Date of Thrive Assessment Date Thrive assessed 01/10/24 01/10/24 08:55 Currently or been in a relationship where the following occur: I choose not to answer Const General: No confusion Orientation/consciousness: No confusion HENMT Head: Yes normocephalic Ears: external ears normal and TM's normal bilaterally Face and sinus: Yes normal facial exam Mouth: moist mucous membranes Throat: Yes tonsils normal Eyes Conjunctivae: conjunctivae normal Pupils: Equal, round and reactive pupils present and Pupil accommodation reflex normal Direct Ophthalmoscopy: normal light reflex Neck Neck: No lymphadenopathy Thyroid: Thyroid normal Chest Chest palpation & inspection: normal inspection of the chest Resp Effort & Inspection: normal respiratory effort and no audible wheezes Auscultation: clear to auscultation bilaterally, no crackles, no wheezes and lung sounds not diminished Cardio Rate: regular rate Rhythm: regular rhythm Peripheral pulses: radial pulses present and dorsalis pedis present GI Palpation (GI): no masses Auscultation: normal bowel sounds and normoactive bowel sounds Rectal Exam - Female: deferred Skin General skin exam: no rashes or lesions noted Rashes: no rashes Neuro General: No confusion Cranial nerves: Yes Equal, round and reactive pupils present and Yes Normal hearing present Cognition (Neuro): normal cognition Gait exam (Neuro): Normal gait present Motor exam (neuro): 5/5 motor strength present throughout Deep tendon reflexes (DTR's): Right brachioradialis reflex intensity grade: 2+, Left brachioradialis reflex intensity grade: 2+, Right patellar reflex intensity grade: 2+ and Left patellar reflex intensity grade: 2+ Extrem General: No edema Immunizations tetanus-diphtheria toxoids-Td 2 Lf unit-2 Lf unit/0.5 mL IM suspension Performing Provider: Leilani Saavedra MD [facility] Administered by: ALVINA Mathews on 01/10/24 09:56 Dose Route Admin Location Dispensed Lot Number Expiration Date [facility] Schedule Supervisor 0.5 mL IM Left Deltoid 0.5 mL [id number] 05/26/24 [address]-0 [employer] VIS Given Date VIS Provided VIS Publication Date 01/10/24 Single Vaccine 20 Eligibility Eligibility Date Funding Source Not VFC Eligible 01/10/24 State funds Assessment and Plan Assessment & Plan (1) Annual physical exam: Code(s): Z00.00 - Encounter for general adult medical examination without abnormal findings Plan: Patient is advised to eat healthy, keep well hydrated, keep active and have adequate sleep. (2) Obesity (BMI 30-39.9): Code(s): E66.9 - Obesity, unspecified Plan: Diet and exercise (3) Varicose veins of both lower extremities: Code(s): I83.93 - Asymptomatic varicose veins of bilateral lower extremities Plan: elevate legs support stocking, exercise Orders: Orders Thyroid Stimulating Hormone Today E66.9 - Obesity, unspecified Lipid Panel Today E66.9 - Obesity, unspecified, E78.00 - Pure hypercholesterolemia, unspecified Vitamin B12 and Folate Today E66.9 - Obesity, unspecified Td State Immunization Today Z23 - Encounter for immunization Complete Blood Count Auto Diff Today E66.9 - Obesity, unspecified Comprehensive Met. Panel Today E66.9 - Obesity, unspecified Free T4 (Free Thyroxine) Today E66.9 - Obesity, unspecified UA CC w/rflx Micro + Cult Today E66.9 - Obesity, unspecified, R30.0 - Dysuria Vitamin D 25-OH Total Today E66.9 - Obesity, unspecified Hemoglobin A1c Today E66.9 - Obesity, unspecified Medications: New tetanus-diphtheria toxoids-Td 0.5 mL IM ONCE 0.5 mL 0RF Z23 - Encounter for immunization Coding Level of Care Code Est Pt Prev Care 40-64y(05386) Diagnoses Annual physical exam Z00.00 Obesity (BMI 30-39.9) E66.9 Varicose veins of both lower extremities I83.93
[2024-01-10 08:55] VITALS: BP 110/80; PULSE 91; O2SAT 98; BMI 33.9
== END 2024-01-10 09:58 | disposition home or self-care (01) ==
PROVIDERS: PCP Internal Medicine; Visit Provider Internal Medicine
DX: Z00.00 Encounter for general adult medical examination without abnormal findings (principal); E66.9 Obesity, unspecified; Z68.30 Body mass index [BMI] 30.0-30.9, adult; Z23 Encounter for immunization; I83.93 Asymptomatic varicose veins of bilateral lower extremities

== ENCOUNTER → 2024-01-10 08:52 | Outpatient (BNVA) | payer BC, SELFPAY | PROVIDERS: PCP Internal Medicine; Visit Provider Internal Medicine | DX: Z00.00 Encounter for general adult medical examination without abnormal findings (principal); E66.9 Obesity, unspecified; Z68.33 Body mass index [BMI] 33.0-33.9, adult; I83.93 Asymptomatic varicose veins of bilateral lower extremities; Z23 Encounter for immunization | CPT/HCPCS: 90471; 90714; 96127 ==

== ENCOUNTER 2024-02-13 08:58 | Outpatient (REF) | payer BC, SELFPAY ==
--- NOTE | ~2024-02-13 | MM_ITS ---
EXAMINATION: MM SCREENING DIGITAL BREAST TOMOSYNTHESIS, BILATERAL CLINICAL INFORMATION: Screening. Asymptomatic. COMPARISON: Mammography: Comparison is made with available priors TECHNIQUE: Digital breast mammography with tomosynthesis is performed in both the craniocaudal and mediolateral oblique views along with computer-aided detection (CAD). FINDINGS: The breasts are heterogeneously dense, which may obscure small masses (ACR BI-RADS breast composition Category c). Left breast marker clip. There are no significant masses, abnormal calcifications, or other abnormalities. MM/MM tomosynthesis screening BI IMPRESSION: No mammographic evidence of malignancy. ASSESSMENT: BI-RADS BI-RADS 2 - Benign Findings RECOMMENDATION: Routine annual mammography screening. 1 year F/U This examination should not preclude the clinical evaluation of a suspicious palpable abnormality. This patient's information was entered into a reminder system with a target due date for their next mammogram. Electronically signed by: Stefani Lock DO 02/22/2024 08:14 AM [facility]
[2024-02-13 09:16] LABS: MANUAL DIFF FLAG NO
[2024-02-13 09:39] LABS: Basophils Percent Auto 0.7 % (0-2); Eosinophils Absolute Auto 0.1 X10*3/uL (0.0-0.4); Eosinophils Percent Auto 2.3 % (0-4); Hematocrit 40.6 % (37.0-47.0); Hemoglobin 13.2 g/dl (12.0-16.0); Lymphocytes Absolute Auto 1.1 X10*3/uL (1.2-4.9); Lymphocytes Percent Auto 24.8 % (20-40); Mean Corpuscular HGB Conc 32.5 g/dl (31.0-35.0); Mean Corpuscular Hemoglobin 31.1 pg (27.0-33.0); Mean Corpuscular Volume 95.5 fL (80.0-98.0); Mean Platelet Volume 9.8 fL (9.4-12.3); Monocytes Absolute Auto 0.3 X10*3/uL (0.1-1.2); Monocytes Percent Auto 5.7 % (2-11); Neutrophils Absolute Auto 2.9 x10*3/uL (2.0-8.3); Neutrophils Percent Auto 66.5 % (45-73); Platelet Count 270 X10*3/uL (160-400); Red Blood Count 4.25 X10*6/uL (4.20-5.50); Red Cell Distribution Width 12.7 % (11.0-16.0); White Blood Count 4.4 X10*3/uL (4.8-10.8)
[2024-02-13 09:50] LABS: Appearance Urine Clear; Color Urine Yellow; Glucose Urine UA Negative (Negative); Leukocyte Esterase Urine Negative (Negative); Nitrite Urine Negative (Negative); PH 6.5 (5.0-9.0); Urine Blood Negative (Negative); Urine Ketones Negative (Negative); Urine Protein Negative (Neg-Trace)
[2024-02-13 10:00] LABS: Estimated Average Glucose 97 mg/dL; Hemoglobin A1C 102.2297 umol/L; Total Hemoglobin (HGBA1C) 3235.7627 umol/L
[2024-02-13 12:39] LABS: Alanine Aminotransferase 42 U/L (0-31); Albumin Level 4.2 g/dL (3.5-5.0); Alkaline Phosphatase 63 U/L (39-117); Anion Gap 14 (12-20); Aspartate Amino Transferase 44 U/L (5-31); Bilirubin Total 0.5 mg/dL (0.0-1.0); Blood Urea Nitrogen 11 mg/dL (9-16); Carbon Dioxide 24 mmol/L (22-29); Chloride 106 mmol/L (96-108); Cholesterol 237 mg/dL (<200); Estimated Glomerular Filt Rate > 60; Glucose Random 94 mg/dL (60-115); HDL Cholesterol 60 mg/dL (>40); LDL Cholesterol Calculated 157 mg/dL (<100); Potassium 4.1 mmol/L (3.3-5.1); Sodium 140 mmol/L (135-145); Total Protein 7.4 g/dL (6.5-8.0); Triglycerides 104 mg/dL (<150)
[2024-02-13 12:52] LABS: Folate 13.5 ng/mL (> or = 4.0); Vitamin B12 497 pg/mL (200-900)
[2024-02-13 13:06] LABS: Free T4 (Free Thyroxine) 0.95 ng/dL (0.71-1.85); Thyroid Stimulating Hormone 0.98 uIU/mL (0.32-4.0)
== END 2024-02-13 08:59 | disposition home or self-care (01) ==
LOC: HO.MAMMO 08:58
PROVIDERS: PCP Internal Medicine; Visit Provider Internal Medicine
DX: Z12.31 Encounter for screening mammogram for malignant neoplasm of breast (principal); E66.9 Obesity, unspecified; E78.00 Pure hypercholesterolemia, unspecified; R30.0 Dysuria; Z13.1 Encounter for screening for diabetes mellitus
CPT/HCPCS: 36415; 77063; 77067; 80053; 80061; 81003; 82306; 82607; 82746; 83036; 84439; 84443; 85025

== ENCOUNTER → 2024-02-13 10:15 | Outpatient (BNV) | payer BC, SELFPAY | PROVIDERS: PCP Internal Medicine; Visit Provider Internal Medicine | DX: Z12.31 Encounter for screening mammogram for malignant neoplasm of breast (principal) | CPT/HCPCS: 77063; 77067 ==

== ENCOUNTER 2024-02-28 09:32 | Outpatient (REF) | payer BC, SELFPAY ==
--- NOTE | ~2024-02-28 | US_ITS ---
EXAMINATION: US ABDOMEN COMPLETE CLINICAL INFORMATION: Abnormal findings on blood chemistry. COMPARISON: No priors. TECHNIQUE: Real-time imaging of the abdominal viscera using grayscale and color Doppler technique. FINDINGS: Submitted for interpretation on March 21, 2024. PANCREAS: No peripancreatic fluid collection. ABDOMINAL AORTA: The proximal, mid, and distal segments are normal in caliber. INFERIOR VENA CAVA: Visualized portions are normal. LIVER: The liver is normal in size. The liver contour is normal. Normal echotexture. No solid or cystic lesion. Portal vein is patent with normal hepatopedal flow direction. No intrahepatic biliary ductal dilatation. GALLBLADDER: Fluid-filled without gallbladder wall thickening or pericholecystic fluid collection. COMMON BILE DUCT: 3 mm. RIGHT KIDNEY: Normal echotexture. Normal renal cortical thickness. No solid or cystic lesion. No hydronephrosis. The kidney measures 11.0 cm in maximum dimension. Normal flow on color Doppler interrogation of the renal hilum. LEFT KIDNEY: Normal echotexture. Normal renal cortical thickness. No solid or cystic lesion. No hydronephrosis. The kidney measures 10 cm in maximum dimension. Normal flow on color Doppler interrogation of the renal hilum. SPLEEN: The spleen measures 11 cm in maximum dimension. No focal lesion.. FREE FLUID: None. US/US abdomen complete IMPRESSION: Normal exam. Electronically signed by: Cesar Haney MD 03/21/2024 07:45 AM MAN[facility]
== END 2024-02-28 09:33 | disposition home or self-care (01) ==
LOC: HO.US 09:32
PROVIDERS: PCP Internal Medicine; Visit Provider Internal Medicine
DX: R79.89 Other specified abnormal findings of blood chemistry (principal)
CPT/HCPCS: 76700

== ENCOUNTER → 2024-02-28 09:33 | Outpatient (BNV) | payer BC, SELFPAY | PROVIDERS: PCP Internal Medicine; Visit Provider Radiology Diagnostic Radiology | DX: R79.89 Other specified abnormal findings of blood chemistry (principal) | CPT/HCPCS: 76700 ==

== ENCOUNTER 2025-01-15 12:19 | Outpatient (AMB) | payer BC, SELFPAY ==
--- NOTE | 2025-01-15 12:32 | MHC.PC.OV ---
Vital Signs 01/15/25 12:33 Height 5 ft 6 in Weight 213 lb 2 oz BMI 34.4 BP 124/74 Blood Pressure Location Lt brachial Position Sitting Pulse 85 Pulse Source Pulse Oximeter Temp 97.0 F Temp Source Temporal Artery Scan Pulse Oximetry (%) 98 Oxygen Delivery Method Room Air Intake Visit Reasons: PE Allergies pseudoephedrine (Sudafed) Allergy (Unknown, Verified 01/15/25 12:35) unk Medication List - Last Reconciled 01/15/25 by Leilani Saavedra MD cyclobenzaprine 10 mg PO BID PRN ibuprofen 600 mg PO Q8H PRN multivitamin 1 tab PO DAILY omega 5-ajb-zbc-fish oil 60-90-500 mg (Fish Oil) 1 cap PO DAILY Tobacco use date assessed: 01/15/25 Dental Screening Dental Screen Date: 01/15/25 Did you have a dental visit in the last 12 months?: Yes Did you have a dental problem in the last 6 months where you did not have access to dental care?: No Was dental information given to patient?: Patient has dentist HPI PE HPI Details plays volleyball and complains R flank pain PFSH Medical History Constipation Left ovarian cyst Obesity (BMI 30-39.9) Vitamin D deficiency Surgical History No pertinent past surgical history Family History Mother Arthritis Father Hypertension Social History Housing: Apartment Alcohol intake: never Patient Tobacco Use Status: Never used Tobacco e-Cigarette/Vaping Use: Never Used Second Hand Smoke Exposure: No service: No Current occupational status: employed Current occupational exposures/hazards: No Cognitive needs: No Hearing needs: No Vision needs: Yes Female Reproductive History Menstrual Age of Menarche: 9 Questionnaire PHQ-9 Over the last 2 weeks, how often have you been bothered by any of the following problems? 1. Little interest or pleasure in doing things: not at all 2. Feeling down, depressed, or hopeless: not at all 3. Trouble falling or staying asleep, or sleeping too much: not at all 4. Feeling tired or having little energy: not at all 5. Poor appetite or overeating: not at all 6. Feeling bad about yourself - or that you are a failure or have let yourself or your family down: not at all 7. Trouble concentrating on things, such as reading the newspaper or watching television: not at all 8. Moving or speaking so slowly that other people could have noticed. Or the opposite - being so fidgety or restless that you have been moving around a lot more than usual: not at all 9. Thoughts that you would be better off or of hurting yourself in some way: not at all Total score: 0 Depression Screening Interpretation: Negative Depression Screening Done: Yes 47461 - PHQ-9 Billing: Yes Source: Developed by Drs. Mark Sosa, Brianna Nur, Adama Corbett and colleagues, with an educational bouchra from [employer]. Thrive Questionnaire Date Thrive assessed: 01/08/25 I am a: Patient What is your living situation today?: I choose not to answer this question Within the past 12 months, did the food you bought not last and you didn't have the money to get more?: I choose not to answer this question Within the past 12 months, did you worry whether your food would run out before you got money to buy more?: I choose not to answer this question Do you have trouble paying for medicines?: I choose not to answer this question Do you have trouble getting transportation to medical appointments?: I choose not to answer this question Do you have trouble paying your heating and electricity bill?: I choose not to answer this question Do you have trouble taking care of your child, family member or friend?: I choose not to answer this question Do you have trouble with day-to-day activities such as bathing, preparing meals, shopping, managing finances, etc.?: I choose not to answer this question Are you currently unemployed and looking for a job?: I choose not to answer this question Are you interested in more education?: I choose not to answer this question Please select the resources that you would like help with: None THRIVE Score: 0 AUDIT C Alcohol Use Questionnaire (AUDIT-C) 1. How often do you have a drink containing alcohol?: Never 3. How often do you have six or more drinks on one occasion?: Never Total Score: 0 ANAMIKA-7 AMB Questionnaire ANAMIKA-7 Date ANAMIKA - 7 assessed: 01/15/25 Feeling nervous, anxious, or on edge: 0 = Not at all Not being able to stop or control worryin = Not at all Worrying too much about different things: 1 = Several days Trouble relaxin = Nearly every day Being so restless that it is hard to sit still: 1 = Several days Becoming easily annoyed or irritable: 1 = Several days Feeling afraid as if something awful might happen: 0 = Not at all Total ANAMIKA-7 score (0-4 normal; 5-9 mild; 10-14 moderate; 15-21 severe): 6 Source: Developed by Drs. Mark Sosa, Brianna Nur, Adama Corbett and colleagues, with an educational bouchra from [employer]. ANAMIKA-7 Assessment Billing ANAMIKA-7 Assessment Tool: ANAMIKA-7 Assessment 99522 Review of Systems Const Denies poor appetite and Denies weakness Eyes Denies no additional complaints ENT Reports Normal hearing present, Denies dizziness, Denies nasal congestion, Denies tinnitus and Denies sore throat Card Denies chest pain, Denies syncope, Denies rapid heart rate and Denies dyspnea Resp Denies cough and Denies dyspnea GI Denies change in stool character, Reports constipation, Denies diarrhea, Denies nausea and Denies vomiting Denies urinary frequency, Denies difficulty voiding and Denies dysuria Neuro Reports Normal hearing present, Denies confusion, Denies dizziness, Denies syncope and Denies weakness Psych Denies confusion Physical exam (Primary Care) Vital Signs: Last Vital Signs Temp 97.0 F 01/15/25 12:33 Pulse 85 01/15/25 12:33 BP 124/74 01/15/25 12:33 Pulse Ox 98 01/15/25 12:33 Oxygen Delivery Method Room Air 01/15/25 12:33 BMI result Body Mass Index 34.4 Tobacco/Smoking Status: Tobacco use Status Tobacco use date assessed 01/15/25 01/15/25 12:36 Patient Tobacco Use Status Never used Tobacco 01/15/25 12:35 Tobacco use type 02/06/22 13:44 e-Cigarette/Vaping Use Never Used 01/15/25 12:35 PHQ-9: PHQ-9 Score PHQ-9: Total score 0 01/15/25 12:36 Depression Screening Interpretation: Negative Thrive Assessment: Date of Thrive Assessment Date Thrive assessed 01/08/25 01/15/25 12:35 Const General: No confusion Orientation/consciousness: No confusion HENMT Head: Yes normocephalic Ears: external ears normal and TM's normal bilaterally Face and sinus: Yes normal facial exam Mouth: moist mucous membranes Throat: Yes tonsils normal Eyes Conjunctivae: conjunctivae normal Pupils: Equal, round and reactive pupils present and Pupil accommodation reflex normal Direct Ophthalmoscopy: normal light reflex Neck Neck: No lymphadenopathy Thyroid: Thyroid normal Chest Chest palpation & inspection: normal inspection of the chest Resp Effort & Inspection: normal respiratory effort and no audible wheezes Auscultation: clear to auscultation bilaterally, no crackles, no wheezes and lung sounds not diminished Cardio Rate: regular rate Rhythm: regular rhythm Peripheral pulses: radial pulses present and dorsalis pedis present GI Palpation (GI): no masses Auscultation: normal bowel sounds and normoactive bowel sounds Rectal Exam - Female: deferred Skin General skin exam: no rashes or lesions noted Rashes: no rashes Neuro General: No confusion Cranial nerves: Yes Equal, round and reactive pupils present and Yes Normal hearing present Cognition (Neuro): normal cognition Gait exam (Neuro): Normal gait present Motor exam (neuro): 5/5 motor strength present throughout Deep tendon reflexes (DTR's): Right brachioradialis reflex intensity grade: 2+, Left brachioradialis reflex intensity grade: 2+, Right patellar reflex intensity grade: 2+ and Left patellar reflex intensity grade: 2+ Extrem General: No edema Coding Level of Care Code Est Pt Prev Care 40-64y(26406) Diagnoses Annual physical exam Z00.00 LFT elevation R79.89 Obesity (BMI 30-39.9) E66.9 Hypercholesterolemia E78.00 Melasma L81.1 Additional Codes ANAMIKA-7 Assessment Billing - ANAMIKA-7 Assessment Tool: ANAMIKA-7 Assessment 38922 ([id number]) PHQ-9 - 88243 - PHQ-9 Billing: Yes ([id number]) Assessment & Plan Assessment & Plan (1) Annual physical exam: Code(s): Z00.00 - Encounter for general adult medical examination without abnormal findings Category: Medical Plan: Patient is advised to eat healthy, keep well hydrated, keep active and have adequate sleep. (2) LFT elevation: Code(s): R79.89 - Other specified abnormal findings of blood chemistry Category: Medical Plan: Will repeat testing. Ultrasound done negative results (3) Obesity (BMI 30-39.9): Code(s): E66.9 - Obesity, unspecified Category: Medical Plan: Diet and exercise (4) Hypercholesterolemia: Code(s): E78.00 - Pure hypercholesterolemia, unspecified Category: Medical Plan: Avoid fried foods, chicken skin, eggs, butter margarine, pastries and meat. Be it pork or beef they have a lot of cholesterol LDL goal of less than 130 and triglyceride of less than 150 (5) Melasma: Code(s): L81.1 - Chloasma Category: Medical Plan History of Present Illness The patient is a 44-year-old female presenting for a physical examination and management of chronic conditions. She has a history of hypercholesterolemia with her last LDL cholesterol level recorded at 157 mg/dL, which is above the target goal of less than 130 mg/dL. The patient is aware of the need to manage her cholesterol levels through diet and exercise. The patient has elevated liver function tests with levels noted at 44 and 42, but a liver ultrasound conducted in February of the previous year showed normal results. She has mild leukopenia noted in her last blood work conducted in January 2024, with no anemia and normal renal function. The patient reports a rash on her face that has been present for a long time, starting as small patches and becoming darker over time. She has been using serums but is seeking further treatment options. 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 Review of Systems - General: Denies fever, chills - Cardiovascular: Denies chest pain, palpitations - Respiratory: Denies cough, dyspnea - Gastrointestinal: Denies abdominal pain, nausea, vomiting - Genitourinary: Denies dysuria, nocturia - Musculoskeletal: Reports leg pain, denies swelling - Dermatological: Reports facial rash Physical Exam General: Cooperative, healthy appearing, comfortable, no acute distress and well developed Orientation: Patient oriented x3 Limitations: No limitations Head: Normal to inspection Ears: Hearing grossly normal bilaterally Nose: Normal external nose present Face and sinus: Normal facial exam, noted rash on the face Eyes: Appearance normal, both eyes and all related structures Neck: Normal visual inspection and Yes full ROM Respiratory: Normal respiratory effort and able to speak in complete sentences. Clear to auscultation bilaterally Cardiovascular: Regular rate and rhythm. Normal S1 and S2 GI: Normal to inspection. Soft to palpation and nontender Skin: Rash noted on the face, no other rashes or lesions noted Neuro: Patient oriented x3 Extremities: Normal to inspection, no leg swelling noted, but patient reports leg pain depending on position or activity Results - Labs: Mild leukopenia, elevated liver function tests (ALT 44, AST 42), elevated LDL cholesterol (157 mg/dL), low vitamin D - Imaging: Liver ultrasound normal Plan Patient was informed and verbally consented to the use of an ambient scribe for clinic note documentation during this visit. 1. Obesity The patient is advised to engage in regular physical activity, such as running, and to maintain a healthy diet to manage her weight. Discussion about weight management options, including medications and referrals, was conducted, but the patient prefers lifestyle modifications. 2. Hypercholesterolemia The patient is advised to follow a diet and exercise plan to reduce LDL cholesterol levels to below 130 mg/dL. Regular monitoring of cholesterol levels is recommended. 3. Elevated Liver Function Tests The patient will have repeat liver function tests to monitor the elevated levels. Previous ultrasound results were normal, providing reassurance. 4. Leukopenia The patient will continue to be monitored for leukopenia, with no immediate intervention required as there is no anemia or other abnormalities. 5. Vitamin D Deficiency The patient is advised to consider vitamin D supplementation to address the deficiency. 6. Rash On Face The patient is advised to use a prescribed topical cream and to follow up with dermatology for further evaluation and management. Discussion Notes During the visit, we discussed the management of hypercholesterolemia through diet and exercise, aiming for an LDL goal of less than 130 mg/dL. We also addressed the elevated liver function tests, with plans to repeat testing and monitor the condition. The patient was informed about the option of using a topical cream for her facial rash and the importance of follow-up with dermatology. Patient Instructions - Follow a healthy diet and exercise regularly to manage cholesterol and weight. - Use the prescribed topical cream for facial rash as directed. - Schedule a follow-up appointment with dermatology. - Ensure regular monitoring of liver function tests and cholesterol levels. - Consider vitamin D supplementation. Orders: Orders Thyroid Stimulating Hormone Today R7 - Other specified abnormal findings of blood chemistry Lipid Panel Today E78.00 - Pure hypercholesterolemia, unspecified, R7. - Other specified abnormal findings of blood chemistry Hepatitis B,C Profile Today R7 - Other specified abnormal findings of blood chemistry Vitamin B12 and Folate Today R7. - Other specified abnormal findings of blood chemistry Vitamin D 25-OH Total Today - Other specified abnormal findings of blood chemistry Hemoglobin A1c Today - Other specified abnormal findings of blood chemistry Complete Blood Count Auto Diff Today R7 - Other specified abnormal findings of blood chemistry Comprehensive Met. Panel Today - Other specified abnormal findings of blood chemistry Free T4 (Free Thyroxine) Today R7 - Other specified abnormal findings of blood chemistry Ferritin Today R7 - Other specified abnormal findings of blood chemistry Referrals Dermatology Referral L81.1 - Chloasma Medications: New hydroquinone 4% 1 appl topical DAILY 28.4 grams 0RF L81.1 - Chloasma
[2025-01-15 12:33] VITALS: BP 124/74; PULSE 85; TEMP 36.1; O2SAT 98; BMI 34.4
== END 2025-01-15 13:05 | disposition home or self-care (01) ==
LOC: HO.HMCH 12:20
PROVIDERS: PCP Internal Medicine; Visit Provider Internal Medicine
DX: Z00.00 Encounter for general adult medical examination without abnormal findings (principal); R79.89 Other specified abnormal findings of blood chemistry; E66.9 Obesity, unspecified; Z68.34 Body mass index [BMI] 34.0-34.9, adult; E78.00 Pure hypercholesterolemia, unspecified; L81.1 Chloasma

== ENCOUNTER → 2025-01-15 12:19 | Outpatient (BNVA) | payer BC, SELFPAY | PROVIDERS: PCP Internal Medicine; Visit Provider Internal Medicine | DX: Z00.00 Encounter for general adult medical examination without abnormal findings (principal); R79.89 Other specified abnormal findings of blood chemistry; E66.9 Obesity, unspecified; E78.00 Pure hypercholesterolemia, unspecified; L81.1 Chloasma; D72.819 Decreased white blood cell count, unspecified; E55.9 Vitamin D deficiency, unspecified | CPT/HCPCS: 96127 ==

== ENCOUNTER 2025-02-18 08:49 | Outpatient (REF) | payer BC, SELFPAY ==
[2025-02-18 09:06] LABS: MANUAL DIFF FLAG NO
[2025-02-18 09:50] LABS: Hematocrit 42.3 % (37.0-47.0); Hemoglobin 13.7 g/dl (12.0-16.0); Imm Gran Abs Auto 0.02 X10*3/uL (0.00-0.03); Imm Gran Pct Auto 0.4 % (0.0-0.4); Lymphocytes Absolute Auto 1.3 X10*3/uL (1.2-4.9); Mean Corpuscular HGB Conc 32.4 g/dl (31.0-35.0); Mean Corpuscular Hemoglobin 31.1 pg (27.0-33.0); Mean Corpuscular Volume 95.9 fL (80.0-98.0); NRBC Abs Auto 0.000 X10*3/uL (0.0-0.012); NRBC Pct Auto 0.0 /100WBC (0.0-0.2); Platelet Count 280 X10*3/uL (160-400); Red Blood Count 4.41 X10*6/uL (4.20-5.50); White Blood Count 4.9 X10*3/uL (4.8-10.8)
[2025-02-18 10:01] LABS: Total Hemoglobin (HGBA1C) 3502.2637 umol/L
[2025-02-18 10:24] LABS: Alanine Aminotransferase 19 U/L (0-31); Albumin Level 4.5 g/dL (3.5-5.0); Alkaline Phosphatase 70 U/L (39-117); Anion Gap 7 (12-20); Aspartate Amino Transferase 21 U/L (5-31); Blood Urea Nitrogen 13 mg/dL (9-16); Calcium 8.8 mg/dL (8.4-10.2); Carbon Dioxide 29 mmol/L (22-29); Chloride 108 mmol/L (96-108); Cholesterol 224 mg/dL (<200); Estimated Glomerular Filt Rate > 60; HDL Cholesterol 57 mg/dL (>40); Potassium 4.4 mmol/L (3.3-5.1); Sodium 140 mmol/L (135-145); Total Protein 7.5 g/dL (6.5-8.0); Triglycerides 88 mg/dL (<150)
[2025-02-18 10:57] LABS: Ferritin 30 ng/mL (10-250); Free T4 (Free Thyroxine) 0.99 ng/dL (0.71-1.85); Thyroid Stimulating Hormone 0.85 uIU/mL (0.32-4.0)
[2025-02-18 11:03] LABS: HBS Num1 2.43 mIU/mL (0-7.99); HBc Num1 0.10 S/CO (0.00-0.79); HBsAGNum1 0.43 S/CO (0.00-0.99); Hepatitis B Surface Antigen Negative (Negative); ~HepC Num1 0.10 S/CO (0.00-0.79); ~Hepatitis B Surface Antibody NONREACTIVE (Nonreactive); ~Hepatitis C Antibody Nonreactive (Nonreactive)
[2025-02-18 11:15] LABS: Folate 12.1 ng/mL (> or = 4.0); Vitamin B12 374 pg/mL (200-900)
== END 2025-02-18 08:50 | disposition home or self-care (01) ==
LOC: HO.MAMMO 08:49
PROVIDERS: PCP Internal Medicine; Visit Provider Internal Medicine
DX: Z12.31 Encounter for screening mammogram for malignant neoplasm of breast (principal); R79.89 Other specified abnormal findings of blood chemistry; E78.00 Pure hypercholesterolemia, unspecified
CPT/HCPCS: 36415; 77063; 77067; 80053; 80061; 82306; 82607; 82728; 82746; 83036; 84439; 84443; 85025; 86704; 86706; 86803; 87340

== ENCOUNTER → 2025-02-18 09:30 | Outpatient (BNV) | payer BC, SELFPAY | PROVIDERS: PCP Internal Medicine; Visit Provider Radiology Body Imaging | DX: Z12.31 Encounter for screening mammogram for malignant neoplasm of breast (principal) | CPT/HCPCS: 77063; 77067 ==